=== PATIENT | female | born 1995 | race Caucasian/White ===

== ENCOUNTER 2025-10-01 09:52 | Outpatient (CLI) | payer BC, SELFPAY ==
--- NOTE | 2025-10-01 10:00 | CRLHL7_ITS ---
For Patients: As a result of the Century Cures Act, medical imaging exams and procedure reports are released immediately into your electronic medical record. You may view this report before your referring provider. If you have questions, please contact your health care provider. OB ULTRASOUND INDICATION: Dating and viability. TECHNIQUE: Real time grayscale imaging of the fetus was performed. Transvaginal. Transvaginal imaging performed to better demonstrate the endometrium and ovaries. LMP: 08/05/2025. TRESA by LMP: 05/12/2026. GA: 8 w, 1 d. Previous US: No. CRL: 1.2 cm. 7 w 3 d. TRESA: 05/17/2026. FHR: 150 BPM. Gestational sac: 2.4 cm. Appears within normal limits. Yolk sac: 2.6 mm. Appears within normal limits. Right ovary: 3.1 x 1.5 x 2.2cm. Left ovary: 4.8 x 2.9 x 3.0 cm. CL. IMPRESSION: 1. Single living intrauterine measures 7 weeks 3 days with sonographic due date 05/17/2026. Simple left ovarian cyst measures 3.6 x 2.5 x 3.3 cm. 2. Subserosal fibroid measures 2.2 x 1.6 x 2.1 cm. Krzysztof Palacio M.D. Diagnostic Radiologist [email or web address] DELIO/opal joseph/Dictated by: Krzysztof Palacio MD @ 10/01/2025 12:23:00 PM (Electronically Signed)
== END 2025-10-01 09:53 | disposition home or self-care (01) ==
LOC: US 09:54
PROVIDERS: Visit Provider Physician Assistant
DX: O34.82 Maternal care for other abnormalities of pelvic organs, second trimester (principal); N83.292 Other ovarian cyst, left side; O34.12 Maternal care for benign tumor of corpus uteri, second trimester; D25.9 Leiomyoma of uterus, unspecified; Z3A.01 Less than 8 weeks gestation of pregnancy
CPT/HCPCS: 76817; 83021; 86592; 86703; 86704; 86706; 86762; 86787; 86803; 86850; 86900; 86901; 87086; 87340; 87491; 87591